=== PATIENT | female | born 1935 | race Native Hawaiian/Other Pacific Islander ===

== ENCOUNTER 2022-03-23 16:02 | Emergency (ER) | payer OTHER ==
[~2022-03-23] VITALS: Ht 172.7 cm; Wt 64.6 kg
[2022-03-23 16:30] VITALS: BP 160/92; TEMP 98.1
[2022-03-23 16:43] LABS: PLATELET COUNT 325 K/uL (152-353)
[2022-03-23 17:14] LABS: POTASSIUM 4.1 mmol/L (3.6-5.2)
[2022-03-23] MEDS ORDERED: DOXAZOSIN2 M1 PO (18:20)
[2022-03-23] MEDS ORDERED: ASCORBIC ACD500 MG PO (18:20)
[2022-03-23] MEDS ORDERED: LATA0.00 OPTH (18:21)
[2022-03-23] MEDS ORDERED: ZESTRIL40 MG PO (18:22)
[2022-03-23] MEDS ORDERED: METO-837 PO (18:22)
[2022-03-23] MEDS ORDERED: PRAVASTATIN10 MG PO (18:23)
[2022-03-23] MEDS ORDERED: PRIMIDONE50 M1 PO (18:23)
[2022-03-23] MEDS ORDERED: QUETIAPINE50 MG PO (18:24)
[2022-03-23] MEDS ORDERED: THERA M PLUS PO (18:25)
[2022-03-23] MEDS ORDERED: ZINC50 M1 PO (18:25)
== END 2022-03-23 17:26 | disposition still patient (30) ==
LOC: ED 16:02
PROVIDERS: Emergency Medicine
DX: F03.90 Unspecified dementia, unspecified severity, without behavioral disturbance, psychotic disturbance, mood disturbance, and anxiety (principal); R45.1 Restlessness and agitation; I10 Essential (primary) hypertension; I69.954 Hemiplegia and hemiparesis following unspecified cerebrovascular disease affecting left non-dominant side; Z11.52 Encounter for screening for COVID-19; Z04.6 Encounter for general psychiatric examination, requested by authority
CPT/HCPCS: 80053; 85027; 87635; 93005; 99283; U0003